=== PATIENT | female | born 1980 | race American Indian/Alaskan Native ===

== ENCOUNTER 2019-02-14 16:22 | Emergency (ER) | payer OTHER ==
--- NOTE | 2019-02-14 16:37 | Emergency Department Report ---
Chief Complaint: Hyperglycemia Stated Complaint: BS HIGH Time Seen by Provider: 02/14/19 16:35 - HPI History of Present Illness: pt has a hx of hyperglycemia pt is from [place] pt states she last took her medication two months ago BG 362 by ambulance per patient was "generally not feeling good" and thats why she called the ambulance MSE screening note: Focused history and physical exam performed. Due to findings the following was ordered: UA, LABS ED Disposition for MSE Condition: Stable
[2019-02-14 16:39] VITALS: BP 145/85
[2019-02-14 17:24] LABS: Alanine Aminotransferase 19 units/L (7-56); BUN/Creatinine Ratio 20; Blood Urea Nitrogen 12 mg/dL (7-17); Calcium 9.4 mg/dL (8.4-10.2); Hemolysis Index 15
[2019-02-14 18:02] LABS: HCG Qualitative,Urine Negative (Negative)
[2019-02-14 18:08] LABS: Bilirubin,Urine NEG (Negative); Blood,Urine NEG (Negative); Color,Urine Yellow (Yellow); Mucus,Urine 1+ /HPF; Protein,Urine <15 mg/dL mg/dL (Negative); Urobilinogen,Urine < 2.0 mg/dL (<2.0); WBC,Urine < 1.0 /HPF (0.0-6.0)
== END 2019-02-14 18:55 | disposition left against medical advice (07) ==
LOC: ED 16:22
DX: I10 Essential (primary) hypertension (principal); Z53.21 Procedure and treatment not carried out due to patient leaving prior to being seen by health care provider
CPT/HCPCS: 36415; 80053; 81001; 81025; 82962

== ENCOUNTER 2019-04-25 14:12 | Emergency (ER) | payer SELFPAY ==
--- NOTE | 2019-04-25 14:27 | Emergency Department Report ---
Blank Doc - Documentation Documentation: This is a 38-year-old female that presents with low back pain, vaginal dischar ge, and abscess to buttock area. This initial assessment/diagnostic orders/clinical plan/treatment(s) is/are subject to change based on patient's health status, clinical progression and re-assessment by fellow clinical providers in the ED. Further treatment and workup at subsequent clinical providers discretion. Patient/guardians urged not to elope from the ED as their condition may be serious if not clinically assessed and managed. Initial orders include: 1- Patient sent to [facility] for further evaluation and treatment 2- labs 3- wet prep/GC swabs
--- NOTE | 2019-04-25 16:06 | Emergency Department Report ---
ED General Adult HPI - General Chief complaint: Medical Clearance Stated complaint: BACK PAIN/VAGINAL BACTERIA Time Seen by Provider: 04/25/19 14:25 Source: patient Mode of arrival: Ambulatory Limitations: No Limitations - History of Present Illness Initial comments: This is a 38 year-old female who presents to the emergency room with vaginal discharge, abscess left buttock, acute on chronic low back pain. Past medical history of diabetes type 2. Patient states the abscess drained last night and swelling decreased. She is more concerned about vaginal discharge with foul odor. Patient states she does not have insurance to follow up with her primary care doctor so she came here for further evaluation. She denies dysuria, urinary frequency, urgency, vaginal bleeding, or recent injury. Onset/Timin -: days(s) Location: buttocks Radiation: non-radiation Severity scale (0 -10): 7 Quality: aching Consistency: intermittent Improves with: none Worsens with: other (sitting) Associated Symptoms: denies other symptoms Treatments Prior to Arrival: none - Related Data Previous Rx's Medication Instructions Recorded Last Taken Type Clindamycin [Clindamycin CAP] 300 mg PO Q8H #21 cap 04/25/19 Unknown Rx metroNIDAZOLE [Flagyl TAB] 500 mg PO Q12HR #14 tab 04/25/19 Unknown Rx Allergies Allergy/AdvReac Type Severity Reaction Status Date / Time No Known Allergies Allergy Unverified 02/14/19 16:39 ED Review of Systems ROS: Stated complaint: BACK PAIN/VAGINAL BACTERIA Other details as noted in HPI Constitutional: denies: chills, fever Respiratory: denies: cough, shortness of breath, wheezing Cardiovascular: denies: chest pain, palpitations Gastrointestinal: denies: abdominal pain, nausea, diarrhea Genitourinary: discharge. denies: urgency, dysuria Musculoskeletal: back pain Skin: lesions (abscess of left buttock). denies: rash Neurological: denies: headache, weakness, paresthesias Psychiatric: denies: anxiety, depression ED Past Medical Hx - Past Medical History Previous Medical History?: Yes Hx Diabetes: Yes Additional medical history: L-SPINE DJD - Surgical History Past Surgical History?: Yes Additional Surgical History: D&C - Social History Smoking Status: Current Every Day Smoker Substance Use Type: None - Medications Home Medications: Home Medications Medication Instructions Recorded Confirmed Last Taken Type Clindamycin [Clindamycin CAP] 300 mg PO Q8H #21 cap 04/25/19 Unknown Rx metroNIDAZOLE [Flagyl TAB] 500 mg PO Q12HR #14 tab 04/25/19 Unknown Rx ED Physical Exam - General Limitations: No Limitations General appearance: alert, in no apparent distress, obese - Respiratory Respiratory exam: Present: normal lung sounds bilaterally. Absent: respiratory distress - Cardiovascular Cardiovascular Exam: Present: regular rate, normal rhythm. Absent: systolic murmur, diastolic murmur, rubs, gallop - GI/Abdominal GI/Abdominal exam: Present: soft, normal bowel sounds. Absent: distended, tenderness, guarding, rebound, rigid, organomegaly, mass, bruit, pulsatile mass - External exam: Present: normal external exam, erythema (1 cm nonfluctuant erythematous areas to the mons pubis, tenderness, surrounding cellulitis) Speculum exam: Present: vaginal discharge (malodorous yellowish discharge). Absent: cervical discharge, vaginal bleeding, foreign body Bi-manual exam: Present: normal bi-manual exam - Neurological Exam Neurological exam: Present: alert, oriented X3, normal gait - Psychiatric Psychiatric exam: Present: normal affect, normal mood - Skin Skin exam: Present: warm, dry, intact, normal color, other. Absent: rash ED Course Vital Signs 04/25/19 14:25 Temperature 98.2 F Pulse Rate 86 Respiratory 18 Rate Blood Pressure 119/64 O2 Sat by Pulse 99 Oximetry ED Medical Decision Making - Lab Data Lab Results 04/25/19 04/25/19 04/25/19 Range/Units 14:28 15:13 18:51 POC Glucose 300 H 278 H (70-105) Urine Color Yellow (Yellow) Urine Turbidity Slightly-cloudy (Clear) Urine pH 5.0 (5.0-7.0) Urine Protein <15 mg/dl (Negative) mg/dL Urine Glucose (UA) 150 (Negative) mg/dL Urine Ketones Tr (Negative) mg/dL Urine Blood Neg (Negative) Urine Nitrite Neg (Negative) Urine Bilirubin Neg (Negative) Urine Urobilinogen < 2.0 (<2.0) mg/dL Ur Leukocyte Esterase Neg (Negative) Urine WBC (Auto) 1.0 (0.0-6.0) /HPF Urine RBC (Auto) 3.0 (0.0-6.0) /HPF U Epithel Cells (Auto) 14.0 H (0-13.0) /HPF Urine Mucus Few /HPF - Medical Decision Making Patient was examined by me. Vitals are normal and patient is in no acute distress. Obtained a urinalysis, POC glucose, wet prep and gonorrhea and chlamydia via pelvic exam. Wet prep positive for Trichomonas and clue cells, negative yeast. Given regular insulin 5 units subcutaneous once while in ER and glucose trended down. Patient has the diabetic and noncompliant on insulin. Patient states she has insulin at home but takes every now and then. Patient will be treated for trichomoniasis and acute vaginitis with metronidazole 500 mg by mouth twice a day 7 days. Instructed to continue taking current Lantus dose and follow-up with PCP. Patient discharged home stable. Critical care attestation.: If time is entered above; I have spent that time in minutes in the direct care of this critically ill patient, excluding procedure time. ED Disposition Clinical Impression: Vaginal discharge, Acute vaginitis, Trichomoniasis of vagina Cellulitis Qualifiers: Site of cellulitis: trunk Site of cellulitis of trunk: perineum Qualified Code(s): L03.315 - Cellulitis of perineum Hyperglycemia due to type 2 diabetes mellitus Qualifiers: Diabetes mellitus terminal clerk insulin use: with terminal clerk use Qualified Code(s): E11.65 - Type 2 diabetes mellitus with hyperglycemia; Z79.4 - rn long term care (current) use of insulin Disposition: DC- TO HOME OR SELFCARE Is pt being admited?: No Does the pt Need Aspirin: No Condition: Stable Instructions: Bacterial Vaginosis (ED), Trichomoniasis (ED), Safe Sex (ED), Sex ually Transmitted Diseases (ED), Diabetes Mellitus Type 2 in Adults (ED) Additional Instructions: Avoid drinking alcohol while taking antibiotics and for 24 hours after completion. Continue safe sexual intercourse. Follow up with Primary Care Provider or health department. Prescriptions: Clindamycin [Clindamycin CAP] 300 mg PO Q8H #21 cap metroNIDAZOLE [Flagyl TAB] 500 mg PO Q12HR #14 tab Referrals: EDMUND COSME MD [Primary Care Provider] - 3-5 Days [facility] [Outside] - 3-5 Days [facility] [Outside] - 3-5 Days Forms: Work/School Release Form(ED) Time of Disposition: 19:19
[2019-04-25 16:13] LABS: Bilirubin,Urine NEG (Negative); Blood,Urine NEG (Negative); Color,Urine Yellow (Yellow); Mucus,Urine FEW /HPF; Protein,Urine <15 mg/dL mg/dL (Negative); Urobilinogen,Urine < 2.0 mg/dL (<2.0)
[2019-04-25] MEDS ORDERED: HumuLIN R IV ONE (16:25)
[2019-04-25] MEDS ORDERED: HumuLIN R SUB-Q ONE (17:09)
[2019-04-25] MEDS ORDERED: NACL 0.9% 1000 ML 1,000 ML IV ONE (17:26)
[2019-04-25 19:23] VITALS: BP 130/84
[2019-04-25] MEDS ORDERED: ZITHROMAX PO ONE (19:24)
[2019-04-25] MEDS ORDERED: XYLOCAINE 1% MPF 5 mL INFILTRATI ONE (19:24)
[2019-04-25] MEDS ORDERED: ROCEPHIN IM ONE (19:24)
== END 2019-04-25 19:56 | disposition home or self-care (01) ==
LOC: ED 14:12
DX: A59.01 Trichomonal vulvovaginitis (principal); L03.315 Cellulitis of perineum; E11.65 Type 2 diabetes mellitus with hyperglycemia; F17.200 Nicotine dependence, unspecified, uncomplicated; Z79.4 Long term (current) use of insulin
CPT/HCPCS: 81001; 82962; 87210; 87591; 96360; 96372; 99284; J0696; J7030; J1815

== ENCOUNTER 2020-01-22 04:59 | Emergency (ER) | payer SELFPAY ==
--- NOTE | 2020-01-22 06:04 | XRay Report ---
CHEST 1 VIEW INDICATION / CLINICAL INFORMATION: Chest Pain. COMPARISON: None available. FINDINGS: SUPPORT DEVICES: None. HEART / MEDIASTINUM: No significant abnormality. LUNGS / PLEURA: No significant pulmonary or pleural abnormality. No pneumothorax. ADDITIONAL FINDINGS: No significant additional findings. IMPRESSION: 1. No acute findings. Signer Name: Sherlyn Serra MD Signed: 01/22/2020 6:00 AM Workstation Name: [id number]
[2020-01-22 06:22] LABS: Basophils # (Auto) 0.1 K/mm3 (0.0-0.1); Basophils % (Auto) 0.6 % (0.0-1.8); Eosinophils # (Auto) 0.1 K/mm3 (0.0-0.4); Eosinophils % (Auto) 1.4 % (0.0-4.3); Hematocrit 39.2 % (30.3-42.9); Hemoglobin 12.9 gm/dl (10.1-14.3); Lymphocytes # (Auto) 2.9 K/mm3 (1.2-5.4); Lymphocytes % (Auto) 29.3 % (13.4-35.0); Mean Corpuscular HGB Conc 33 % (30-34); Mean Corpuscular Volume 88 fl (79-97); Monocytes # (Auto) 0.7 K/mm3 (0.0-0.8); Monocytes % (Auto) 7.3 % (0.0-7.3); Platelet Count 233 K/mm3 (140-440); Red Blood Count 4.44 M/mm3 (3.65-5.03); Red Cell Distribution Width 14.3 % (13.2-15.2)
[2020-01-22] MEDS ORDERED: KETOROLAC 30 MG/1 ML INJ IM ONE (06:23)
--- NOTE | 2020-01-22 06:24 | Emergency Department Report ---
ED Chest Pain HPI - General Chief Complaint: Chest Pain Stated Complaint: CHEST PAIN Time Seen by Provider: 01/22/20 06:13 Source: EMS Mode of arrival: Stretcher Limitations: No Limitations - History of Present Illness Initial Comments: This is a 39-year-old female who states that she has been to the doctor with similar such pain before. She describes it as a "tendinitis". It is prior affected her right shoulder. This time the pain was in her shoulder towards her right pectoral region. It is nonpleuritic. It is clearly musculoskeletal and augmenting on movement. She states that she has had it for a day. She also states that she has had a discharge for the last 2 days. Patient is previously known to utilize the emergency department for primary care. She was here in 2019 with abdominal pain. She had a negative work-up as well as a negative CT of her abdomen and pelvis. She was found to have a glucose of 300+. She was not following up with a primary care physician for her diabetes. She has no prior history of cardiovascular disease nor venous thromboembolism. The patient is currently taking insulin only for her diabetes. MD Complaint: chest pain (Right anterior chest and shoulder pain) -: hour(s) Onset: during rest Pain Location: other (Above) Pain Radiation: other (Nonradiating) Severity: moderate Severity scale (0 -10): 10 Quality: aching Consistency: intermittent Improves With: movement Worsens With: nothing re: denies: nausea, vomting, dyspnea, sense of impending doom Other Symptoms: denies: cough, fever, syncope, rash, acid taste in mouth, leg swelling Treatments Prior to Arrival: none Aspirin use within the Past 7 Days: (0) No - Related Data Previous Rx's Medication Instructions Recorded Last Taken Type Ibuprofen [Motrin 800 MG tab] 800 mg PO Q8HR PRN #30 tablet 06/13/19 Unknown Rx traMADoL [Ultram] 50 mg PO Q4HR PRN #12 tablet 06/13/19 Unknown Rx Azithromycin [Zithromax ORAL PWDR] 1 gm PO ONCE #1 packet 01/22/20 Unknown Rx traMADoL [Ultram 50 MG tab] 50 mg PO Q6HR PRN #10 tablet 01/22/20 Unknown Rx Allergies Allergy/AdvReac Type Severity Reaction Status Date / Time No Known Allergies Allergy Unverified 02/14/19 16:39 Heart Score - HEART Score History: Slightly suspicious EKG: Normal Age: < 45 Risk factors: 1-2 risk factors Troponin: 1-3x normal limit HEART Score: 2 - Critical Actions Critical Actions: 0-3 pts:0.9-1.7%risk of adverse cardiac event.Candidate for discharge ED Review of Systems ROS: Stated complaint: CHEST PAIN Other details as noted in HPI Constitutional: denies: chills, fever Eyes: denies: eye pain, eye discharge, vision change ENT: denies: ear pain, throat pain Respiratory: denies: cough, shortness of breath, wheezing Cardiovascular: as per HPI. denies: palpitations, edema, syncope, paroxysmal nocturnal dyspnea Endocrine: no symptoms reported Gastrointestinal: denies: abdominal pain, nausea, diarrhea Genitourinary: denies: urgency, dysuria, discharge Musculoskeletal: as per HPI. denies: back pain, joint swelling Skin: denies: rash, lesions Neurological: denies: headache, weakness, paresthesias Psychiatric: denies: anxiety, depression Hematological/Lymphatic: denies: easy bleeding, easy bruising ED Past Medical Hx - Past Medical History Previous Medical History?: Yes Hx Diabetes: Yes Additional medical history: L-SPINE DJD. Bronchitis - Surgical History Past Surgical History?: Yes Additional Surgical History: D&C - Social History Smoking Status: Heavy Tobacco Smoker Substance Use Type: None - Medications Home Medications: Home Medications Medication Instructions Recorded Confirmed Last Taken Type Ibuprofen [Motrin 800 MG tab] 800 mg PO Q8HR PRN #30 tablet 06/13/19 Unknown Rx traMADoL [Ultram] 50 mg PO Q4HR PRN #12 tablet 06/13/19 Unknown Rx Azithromycin [Zithromax ORAL PWDR] 1 gm PO ONCE #1 packet 01/22/20 Unknown Rx traMADoL [Ultram 50 MG tab] 50 mg PO Q6HR PRN #10 tablet 01/22/20 Unknown Rx ED Physical Exam - General Limitations: No Limitations General appearance: alert, in no apparent distress - Head Head exam: Present: atraumatic, normocephalic - Eye Eye exam: Present: normal appearance. Absent: scleral icterus - ENT ENT exam: Present: mucous membranes moist - Neck Neck exam: Present: normal inspection - Respiratory Respiratory exam: Present: normal lung sounds bilaterally. Absent: respiratory distress - Cardiovascular Cardiovascular Exam: Present: regular rate, normal rhythm. Absent: systolic murmur, diastolic murmur, rubs, gallop - GI/Abdominal GI/Abdominal exam: Present: soft, normal bowel sounds. Absent: distended, tenderness, guarding, rebound - Extremities Exam Extremities exam: Present: normal inspection, normal capillary refill, other (There is tenderness to palpation of the right luz maria-shoulder area. Range of motion of the right shoulder is normal. There is no joint tenderness. There is no swelling or apparent effusion.). Absent: pedal edema, joint swelling, calf tenderness - Back Exam Back exam: Present: normal inspection. Absent: muscle spasm - Neurological Exam Neurological exam: Present: alert, oriented X3, CN II-XII intact. Absent: motor sensory deficit - Psychiatric Psychiatric exam: Present: normal affect, normal mood - Skin Skin exam: Present: warm, dry, intact, normal color. Absent: rash ED Course Vital Signs 01/22/20 05:11 Temperature 98.3 F Pulse Rate 67 Respiratory 14 Rate Blood Pressure 107/60 Blood Pressure 107/60 [Right] O2 Sat by Pulse 98 Oximetry ED Medical Decision Making - Lab Data Result diagrams: 01/22/20 05:45 01/22/20 05:45 Laboratory Results - last 24 hr 01/22/20 01/22/20 05:45 05:45 WBC 10.0 RBC 4.44 Hgb 12.9 Hct 39.2 MCV 88 MCH 29 MCHC 33 RDW 14.3 Plt Count 233 Lymph % (Auto) 29.3 [place] % (Auto) 7.3 Eos % (Auto) 1.4 Baso % (Auto) 0.6 Lymph # 2.9 [place]oke # 0.7 Eos # 0.1 Baso # 0.1 Seg Neutrophils % 61.4 Seg Neutrophils # 6.1 Sodium 135 L Potassium 3.4 L Chloride 96.6 L Carbon Dioxide 26 Anion Gap 16 BUN 24 H Creatinine 0.7 Estimated GFR > 60 BUN/Creatinine Ratio 34 Glucose 214 H Calcium 9.6 Total Bilirubin < 0.20 AST 15 ALT 15 Alkaline Phosphatase 66 Troponin T < 0.010 Total Protein 7.5 Albumin 4.1 Albumin/Globulin Ratio 1.2 Laboratory Results - last 24 hr 01/22/20 01/22/20 01/22/20 05:45 05:45 07:35 WBC 10.0 RBC 4.44 Hgb 12.9 Hct 39.2 MCV 88 MCH 29 MCHC 33 RDW 14.3 Plt Count 233 Lymph % (Auto) 29.3 Hoke % (Auto) 7.3 Eos % (Auto) 1.4 Baso % (Auto) 0.6 Lymph # 2.9 Hoke # 0.7 Eos # 0.1 Baso # 0.1 Seg Neutrophils % 61.4 Seg Neutrophils # 6.1 Sodium 135 L Potassium 3.4 L Chloride 96.6 L Carbon Dioxide 26 Anion Gap 16 BUN 24 H Creatinine 0.7 Estimated GFR > 60 BUN/Creatinine Ratio 34 Glucose 214 H Calcium 9.6 Total Bilirubin < 0.20 AST 15 ALT 15 Alkaline Phosphatase 66 Troponin T < 0.010 Total Protein 7.5 Albumin 4.1 Albumin/Globulin Ratio 1.2 Urine Color Yellow Urine Turbidity Clear Urine pH 5.0 Ur Specific Eastern 1.036 H Urine Protein 30 mg/dl Urine Glucose (UA) 50 Urine Ketones 20 Urine Blood Neg Urine Nitrite Neg Ur Reducing Substances Not Reportable Urine Bilirubin Neg Urine Ictotest Not Reportable Urine Urobilinogen < 2.0 Ur Leukocyte Esterase Neg Urine WBC (Auto) 1.0 Urine RBC (Auto) 3.0 U Epithel Cells (Auto) 5.0 Urine Mucus 3+ Urine HCG, Qual Negative - EKG Data -: EKG Interpreted by Me EKG shows normal: sinus rhythm, axis, intervals, QRS complexes, ST-T waves Rate: normal - EKG Data Interpretation: no acute changes Critical care attestation.: If time is entered above; I have spent that time in minutes in the direct care of this critically ill patient, excluding procedure time. ED Disposition Clinical Impression: Musculoskeletal pain Vaginitis Qualifiers: Chronicity: subacute Qualified Code(s): N76.1 - Subacute and chronic vaginitis Disposition: TO HOME OR SELFCARE Is pt being admited?: No Does the pt Need Aspirin: No Condition: Stable Instructions: Costochondritis (ED), Vaginitis (ED) Additional Instructions: Follow-up with soil conservation aide and primary care physician. Return any acute change or problem. Rx for pain and antibiotic for discharge. Prescriptions: traMADoL [Ultram 50 MG tab] 50 mg PO Q6HR PRN #10 tablet PRN Reason: Pain Azithromycin [Zithromax ORAL PWDR] 1 gm PO ONCE #1 packet Referrals: EDMUND COSME MD [Primary Care Provider] - 3-5 Days [facility] [Outside] - 3-5 Days Time of Disposition: 09:54
[2020-01-22 06:46] LABS: Alanine Aminotransferase 15 units/L (7-56); Albumin 4.1 g/dL (3.9-5); BUN/Creatinine Ratio 34; Blood Urea Nitrogen 24 mg/dL (7-17); Calcium 9.6 mg/dL (8.4-10.2); Hemolysis Index 3
[2020-01-22 07:51] LABS: HCG Qualitative,Urine Negative (Negative)
[2020-01-22 08:04] LABS: Bilirubin,Urine NEG (Negative); Blood,Urine NEG (Negative); Color,Urine Yellow (Yellow); Mucus,Urine 3+ /HPF; Urobilinogen,Urine < 2.0 mg/dL (<2.0)
[2020-01-22 10:05] VITALS: BP 108/70
== END 2020-01-22 10:05 | disposition home or self-care (01) ==
LOC: ED 04:59
DX: R07.89 Other chest pain (principal); M25.511 Pain in right shoulder; N76.0 Acute vaginitis; E11.9 Type 2 diabetes mellitus without complications; M47.896 Other spondylosis, lumbar region; J40 Bronchitis, not specified as acute or chronic; F17.200 Nicotine dependence, unspecified, uncomplicated; Z98.890 Other specified postprocedural states; Z79.1 Long term (current) use of non-steroidal anti-inflammatories (NSAID); Z79.2 Long term (current) use of antibiotics; Z79.899 Other long term (current) drug therapy
CPT/HCPCS: 36415; 71045; 80053; 81001; 81025; 84484; 85025; 93005; 93010; 96372; 99285; J1885